=== PATIENT | female | born 1945 | race Two or more races ===

== ENCOUNTER 2023-05-29 05:15 | Day surgery (SDC) | payer OTHER ==
[~2023-05-29] VITALS: Ht 165.1 cm; Wt 53.1 kg
[~2023-05-29 05:15] MED LIST: ABATINEX680 MG; ALLOPURINOL100 MG; ATORVASTATIN CA20 MG; CLOPIDOGREL BIS75 MG; FENOFIBRATE160 MG; FERRO-TIME325 MG PO; LIPITOR20 MG PO; LISINOPRIL40 MG; METOPROLOL SUCC50 MG; NIFEDIPINE ER30 MG; PANTOPRAZOLE SO40 MG; PLAVIX75 MG PO; PROBIOTIC250 MG PO; PROTONIX20 MG PO; RETAINE MGD EY1 EACH OPHT; SUCRALFATE1 GM; TOPROL XL25 M1 PO; TRIGELS-F FORT1 EACH PO; URSO FORTE500 MG PO; URSODIOL500 MG; ZESTRIL2.5 MG PO
== END 2023-05-29 12:10 | disposition home or self-care (01) ==
LOC: CIR.AMB 05:15
PROVIDERS: ATTEND Colon & Rectal Surgery
DX: R15.9 Full incontinence of feces (principal); D12.8 Benign neoplasm of rectum; K92.1 Melena; Z20.822 Contact with and (suspected) exposure to COVID-19; I10 Essential (primary) hypertension; Z91.041 Radiographic dye allergy status
CPT/HCPCS: 64581; 95972; C1778

== ENCOUNTER 2023-06-12 05:45 | Day surgery (SDC) | payer OTHER | END 2023-06-12 12:55 | disposition home or self-care (01) | LOC: AMB-ENDOS 05:45 | PROVIDERS: ATTEND Colon & Rectal Surgery | DX: R15.9 Full incontinence of feces (principal); D12.8 Benign neoplasm of rectum; K92.1 Melena; Z20.822 Contact with and (suspected) exposure to COVID-19 | CPT/HCPCS: 64590; 95972; C1767 ==

== ENCOUNTER 2024-12-30 06:25 | Day surgery (SDC) | payer OTHER ==
[2024-12-30] MEDS ORDERED: fentaNYL CITRATE 50 MCG/ML AMPUL IV PUSH ONE (10:15)
[2024-12-30] MEDS ORDERED: DIPHENHYDRAMINE HCL 50 MG/ML VIAL 1ML IV ONE (10:15)
[2024-12-30] MEDS ORDERED: MIDAZOLAM HCL 2 MG/2 ML VIAL IV ONE (10:15)
== END 2024-12-30 11:50 | disposition home or self-care (01) ==
LOC: AMB-ENDOS 06:25
PROVIDERS: ATTEND Colon & Rectal Surgery
DX: D12.8 Benign neoplasm of rectum (principal); Z86.0100 Personal history of colon polyps, unspecified; K57.30 Diverticulosis of large intestine without perforation or abscess without bleeding; Z91.041 Radiographic dye allergy status